=== PATIENT | female | born 1965 | race Caucasian/White ===

== ENCOUNTER 2017-11-22 12:36 | Outpatient (CLI) | END 2017-11-22 12:37 | disposition home or self-care (01) | LOC: RHC-LAB 12:36 | PROVIDERS: ATTEND Nurse Practitioner Family | DX: R53.83 Other fatigue (principal) | CPT/HCPCS: 36415; 82306; 82607 ==

== ENCOUNTER 2018-08-16 15:52 | Outpatient (CLI) | END 2018-08-16 15:53 | disposition home or self-care (01) | LOC: RHC-LAB 15:52 | PROVIDERS: ATTEND Nurse Practitioner Family | DX: Z00.00 Encounter for general adult medical examination without abnormal findings (principal); Z72.0 Tobacco use; F41.8 Other specified anxiety disorders | CPT/HCPCS: 36415; 80053; 80061; 84443; 85025 ==